=== PATIENT | male | born 1945 | race Caucasian/White ===

== ENCOUNTER 2017-02-28 15:22 | Emergency (ER) | payer SELFPAY ==
[2017-02-28] MEDS ORDERED: MORPHINE SULFATE 10 MG/ML SYR ONE ×2 (15:42→15:50)
[2017-02-28 15:43] LABS: BASOPHIL# 0.1 X 10^3uL (0.0-0.1); BASOPHILS 0.8 % (0.0-2.0); EOSINOPHILS 4.2 % (0.0-6.0); EOSINOPHILS# 0.4 X 10^3uL (0.0-0.4); HEMATOCRIT 37.6 % (42.0-54.0); HEMOGLOBIN 12.5 g/dL (14.0-18.0); LYMPHOCYTES 32.2 % (20.0-40.0); LYMPHOCYTES# 2.7 X 10^3uL (0.8-3.8); MEAN CELL VOLUME 83.2 fL (80.0-100.0); MEAN CORPUS. HGB CONCENTRATION 33.2 g/dL (32.0-36.0); MEAN CORPUSCULAR HEMOGLOBIN 27.6 pg (29.0-35.0); MEAN PLATELET VOLUME 7.6 fL (7.4-10.4); MONOCYTES 6.3 % (2.0-10.0); MONOCYTES# 0.5 X 10^3uL (0.2-1.0); NEUTROPHILS 56.5 % (54.0-75.0); NEUTROPHILS# 4.7 X 10^3uL (2.6-6.7); PLATELET COUNT 239 X 10^3uL (130-440); RED BLOOD COUNT 4.52 X 10^6uL (4.20-6.10); RED CELL DISTRIBUTION WIDTH 13.8 % (11.5-14.5); WHITE BLOOD COUNT 8.4 X 10^3uL (3.9-10.7)
[2017-02-28] MEDS ORDERED: ONDANSETRON HCL 4 MG/2 ML VIAL ONE ×2 (15:43→16:08)
[2017-02-28] MEDS ORDERED: NITROGLYCERIN 250 ML IV ONE (15:44)
[2017-02-28 15:49] LABS: BLOOD UREA NITROGEN 14 mg/dL (9-20); CALCIUM 8.6 mg/dL (8.4-10.2); CHLORIDE 108 mmol/L (98-107); EST GLOMERULAR FILTRATION RATE > 60 mL/min; GLUCOSE 145 mg/dL (70-100); MAGNESIUM 1.8 mg/dL (1.6-2.3); POTASSIUM 4.7 mmol/L (3.5-5.1); SODIUM 136 mmol/L (137-145)
[2017-02-28 15:54] LABS: INR 0.9; PARTIAL THROMBOPLASTIN TIME 23 sec (24-38)
[2017-02-28] MEDS ORDERED: NITROGLYCERIN 0.4 MG TAB.SUBL SUBLINGUAL ONE (15:54)
[2017-02-28 16:01] LABS: TROPONIN I < 0.012 ng/mL (0.00-0.034)
[2017-02-28] MEDS ORDERED: HEPARIN SOD PORCINE 5,000 UNITS/ML VIAL ONE (16:01)
--- NOTE | 2017-02-28 16:44 | ER PHYSICIAN DOCUMENTATION ---
Physician Documentation [facility] Name:Chuck Frost Age:71 yrs Sex:Male :1945 Arrival Date:02/28/2017 Time:15:22 BedTrauma-C Private MD: Obed Goode Disposition: 02/28 17:00 Critical Care:. Chart complete. tl1 Disposition: 02/28/17 16:44 Transfer ordered to [facility]. Diagnosis is Chest Pain. - Reason for transfer: Higher level of care. - Accepting physician is JULI PRASAD. - Condition is Serious. COBRA Form completed? Transfer - Mode of Transportation Helicopter HPI: 15:28 This 71 yrs old Male presents to ER with complaints of Chest Pain > 30 y/o. tl1 15:28 The patient or guardian reports chest pain that is located primarily in the substernal tl1 area. Onset: suddenly, just prior to arrival, at 13:50. The pain radiates to There has been no movement of pain. Associated signs and symptoms: Pertinent positives: diaphoresis, nausea, shortness of breath, Pertinent negatives: abdominal pain, cough, lower extremity pain, lower extremity swelling, palpitations. The chest pain is described as sharp, stabbing. Duration: The patient or guardian reports a single episode, that is still ongoing, that lasted 40 minute(s). Severity of pain: At its worst the pain was severe a 10 / 10. EMS care prior to arrival includes: nitroglycerin. Historical: - Allergies: No known drug Allergies; - Home Meds: 1. atorvastatin oral 2. Bystolic oral 3. lisinopril Oral - PMHx: Hypertension; Asthma; - PSHx: BACK; ANKLE; - Tetanus: unknown. - Immunization history: Pneumococcal vaccine status is unknown. - Ebola Screening: : Patient denies travel to an Ebola-affected area in the 21 days before illness onset. No symptoms or risks identified at this time. . - Social history: Smoking status: Patient states was never smoker of tobacco. ROS: 15:30 Cardiovascular: Positive for chest pain, Negative for edema, orthopnea, palpitations, tl1 paroxysmal nocturnal dyspnea. 15:30 Respiratory: Positive for 15:30 Abdomen/GI: Negative for abdominal pain, vomiting, diarrhea, hematemesis, black/tarry stool, rectal bleeding. 15:30 MS/extremity: Negative for acute changes. 15:30 Neuro: Negative for headache, numbness, weakness. 15:30 All other systems are negative. Exam: 15:30 Constitutional: The patient appears alert, awake, anxious, diaphoretic, in obvious tl1 distress, obviously ill, in obvious pain, pale, restless, uncomfortable. 15:30 Head/face: Exam is negative for acute changes. 15:30 Eyes: Exam is negative for acute changes. 15:30 Neck: Exam negative for acute changes. 15:30 Chest/axilla: Palpation: tenderness, is not appreciated. 15:30 Cardiovascular: Rate: bradycardic, Rhythm: regular, Heart sounds: normal, Edema: is not appreciated, JVD: is not appreciated. 15:30 Respiratory: mild respiratory distress is noted, Respirations: normal, Breath sounds: are normal. 15:30 Abdomen/GI: Inspection: abdomen appears normal, Bowel sounds: diminished, Palpation: abdomen is soft and non-tender. 15:30 Back: pain, that is severe, vertebral tenderness, is not appreciated, muscle spasm, is not present. 15:30 Musculoskeletal/extremity: Exam is negative for acute changes. 15:30 Skin: Very Pale. 15:30 Neuro: Exam negative for acute changes. Vital Signs: 15:24 BP 129 / 85 (auto/); st 15:26 Pulse 70 MON; Temp 98.6; Pulse Ox 98% ; Pain 9/10; lc 15:30 BP 148 / 72 (auto/); st 15:36 Pulse 55 MON; Resp 13; Pulse Ox 97% ; st 15:40 BP 125 / 72 (auto/); st 15:41 Pulse 54 MON; Resp 19; Pulse Ox 99% ; Pain 9/10; lc 15:43 BP 139 / 71 (auto/); st 15:46 Pulse 59 MON; Resp 19; st 15:50 BP 115 / 64 (auto/); st 15:51 Pulse 57 MON; Resp 11; st 15:54 BP 105 / 60 (auto/); lc 16:01 BP 148 / 76 (auto/); lc 16:01 Pulse 52 MON; Resp 7; Pulse Ox 97% ; lc 16:18 Pain 8/10; lc MDM: 15:05 Patient took aspirin. Data reviewed: vital signs, nurses notes, and as a result, I will tl1 *Transfer Patient. Data interpreted: circle saw operator: Pulse oximetry:. Test interpretation: by ED physician or midlevel provider: ECG. Counseling: I had a detailed discussion with the patient and/or guardian regarding: the historical points, exam findings, and any diagnostic results supporting the discharge/admit diagnosis, the need to transfer to another facility. ECG:. 15:33 Patient medically screened. tl1 16:36 EKG attached [facility] [place] 02/28 15:49 Order name: CBC AUTO DIF, MDIF/RMOR IF IND; Complete Time: 06:16 EDMS 07 06:15 Interpretation: WHITE BLOOD COUNT 8.4; HEMATOCRIT 37.6; PLATELET COUNT 239. [facility] 02/28 15:55 Order name: BASIC METABOLIC PANEL; Complete Time: 06:16 EDMS / 06:15 Interpretation: Normal Except: GLUCOSE 145. [facility] 02/28 15:55 Order name: MAGNESIUM; Complete Time: 06:16 EDMS 07 06:15 Interpretation: Normal. [facility] 02/28 15:55 Order name: PROTIME/INR; Complete Time: 06:16 EDMS /02 06:15 Interpretation: Normal: PROTIME 15.6; INR 0.9. [facility] 02/28 15:55 Order name: PARTIAL THROMBOPLASTIN TIME; Complete Time: 06:16 EDMS 07/02 06:15 Interpretation: Normal: PARTIAL THROMBOPLASTIN TIME 23. [facility] 02/28 16:01 Order name: TROPONIN I; Complete Time: 06:16 EDMS 07/02 06:15 Interpretation: Normal: TROPONIN I < 0.012. [facility] 02/28 15:40 Order name: EKG - 12 Lead; Complete Time: 15:40 st 0702 06:16 Interpretation: Abnormal: RBBB and LAFB, with TW flattening in II, F. No acute ischemic tl1 changes. EC:05 Rate is 62 beats/min. Rhythm is regular. IA interval is normal. QRS interval is tl1 prolonged. QT interval is normal. No Q waves. T waves are Flattened in leads III, aVF. No ST changes noted. 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 Interpreted by me. Reviewed by me. Dispensed Medications: 14:35 Drug: Nitroglycerin 0.4 mg; Route: Sublingual; 16:31 Follow up: Response: No change in condition lc 15:30 Drug: Zofran 4 mg; Route: IVP; Infused Over: 2 mins; Site: left antecubital; lc 16:31 Follow up: Response: Nausea is decreased lc 15:40 Drug: morphine 2 mg; Route: IVP; Site: left antecubital; lc 16:31 Follow up: Response: Pain is decreased lc 15:45 Drug: Nitroglycerin 5 mcg/min; Route: IV; Rate: calculated rate; Site: right lc antecubital; 16:00 Follow up: IV Status: Infusing continued upon transfer; IV Intake: 10ml lc 15:48 Drug: heparin 6000 units; Route: IVP; Site: left antecubital; lc 16:31 Follow up: Response: No adverse reaction lc 15:55 Drug: Zofran 4 mg; Route: IVP; Infused Over: 2 mins; Site: left antecubital; 16:32 Follow up: Response: Nausea is decreased Critical care time excluding procedures: 15:05 Critical care time: Bedside Care: 50 minutes, Consultation: 10 minutes. Total time: 60 tl1 minutes Signatures: Gemma Caceres RN RN st Coleman, Linda, RN RN lc Campbell, Sandy, RN RN sc1 Leigh, Tom, MD MD tl1
--- NOTE | 2017-02-28 16:44 | ER NURSING DOCUMENTATION ---
Nurse's Notes [facility] Name:Chuck Frost Age:71 yrs Sex:Male :1945 Arrival Date:02/28/2017 Time:15:22 BedTrauma-C Private MD: Diagnosis:Chest Pain Presentation: 02/28 15:26 Acuity: TALHA 2 15:50 Presenting complaint: EMS states: SUDDEN ONSET OF CHEST PAIN THAT RADIATES TO BACK. lc ALSO C/O SWEATING, NAUSEA, SOB. BP'S EQUAL TO ARMS. Transition of care: patient was not received from another setting of care. Asprin Given by EMS 325 mg po. 15:50 Method Of Arrival: EMS: 410 lc 16:13 AIR CAT ACTIVATION no other NON STEMI. Triage Assessment: 16:06 General: Appears distressed, ill, Behavior is agitated, anxious. lc 16:14 Pain: Complains of pain in chest Pain radiates to back Pain At worst was 10 out of 10 lc on a pain scale. Quality of pain is described as dull, heavy, Pain began 30 min ago. Neuro: Level of Consciousness is awake, alert, Oriented to person, place, time, event. Cardiovascular: Capillary refill < 3 seconds Rhythm is sinus rhythm Chest pain is described as severe. Respiratory: Airway is patent Respiratory effort is even, unlabored. Derm: Skin is pale. Historical: - Allergies: No known drug Allergies; - Home Meds: 1. atorvastatin oral 2. Bystolic oral 3. lisinopril Oral - PMHx: Hypertension; Asthma; - PSHx: BACK; ANKLE; - Tetanus: unknown. - Immunization history: Pneumococcal vaccine status is unknown. - Ebola Screening: : Patient denies travel to an Ebola-affected area in the 21 days before illness onset. No symptoms or risks identified at this time. . - Social history: Smoking status: Patient states was never smoker of tobacco. Screenin:15 Infectious Disease Risk None. Abuse screen: Denies threats or abuse. Denies injuries lc from another. Nutritional screening: No deficits noted. Assessment: 15:30 Derm: Skin is clammy, Skin is pale, Skin temperature is warm. 16:00 Reassessment: Patient states symptoms have improved. MEDS GIVEN, UNABLE TO DO PORT CXR, lc 2ND LINE STARTED. TRANSFER ARRANGED, FLIGHTS HERE. PADS ON CHEST. CALLED AND MESSAGE LEFT. . 16:15 See Triage Assessment done by same RN. Pain: Pain radiates to back Pain began 30 min lc ago. Cardiovascular: Rhythm is sinus rhythm. Vital Signs: 15:24 BP 129 / 85 (auto/); st 15:26 Pulse 70 MON; Temp 98.6; Pulse Ox 98% ; Pain 9/10; lc 15:30 BP 148 / 72 (auto/); st 15:36 Pulse 55 MON; Resp 13; Pulse Ox 97% ; st 15:40 BP 125 / 72 (auto/); st 15:41 Pulse 54 MON; Resp 19; Pulse Ox 99% ; Pain 9/10; lc 15:43 BP 139 / 71 (auto/); st 15:46 Pulse 59 MON; Resp 19; st 15:50 BP 115 / 64 (auto/); st 15:51 Pulse 57 MON; Resp 11; st 15:54 BP 105 / 60 (auto/); lc 16:01 BP 148 / 76 (auto/); lc 16:01 Pulse 52 MON; Resp 7; Pulse Ox 97% ; lc 16:18 Pain 8/10; lc Vitals: 16:15 The patient's bilateral blood pressures are equal. ED Course: 15:22 EKG done per protocol. Performed by ED Staff. Shown to ED physician. st 15:23 Patient arrived in ED. arc 15:26 Teresa Bergeron, BRENT is Primary Nurse. 15:26 Triage completed. 15:30 Labs drawn. (by ED staff). Sent per order to lab. 15:30 Valuables sent with patient Placed in gown. Bed in low position. Side rails up X2. vehicle monitor technician on. Pulse ox on. NIBP on. 15:33 Obed Kong MD is Attending Physician. tl1 15:50 Inserted peripheral IV: 18 gauge in left forearm Maintain field IV. Dressing intact. Good blood return noted. Site clean & dry. Gauge & site: 18G TO R AC. Oxygen Oxygen administration via nasal cannula @ 3L/min. 15:58 EKG done. (by ED staff). 16:36 EKG attached sc1 Administered Medications: 14:35 Drug: Nitroglycerin 0.4 mg; Route: Sublingual; 16:31 Follow up: Response: No change in condition 15:30 Drug: Zofran 4 mg; Route: IVP; Infused Over: 2 mins; Site: left antecubital; lc 16:31 Follow up: Response: Nausea is decreased lc 15:40 Drug: morphine 2 mg; Route: IVP; Site: left antecubital; lc 16:31 Follow up: Response: Pain is decreased 15:45 Drug: Nitroglycerin 5 mcg/min; Route: IV; Rate: calculated rate; Site: right lc antecubital; 16:00 Follow up: IV Status: Infusing continued upon transfer; IV Intake: 10ml lc 15:48 Drug: heparin 6000 units; Route: IVP; Site: left antecubital; lc 16:31 Follow up: Response: No adverse reaction 15:55 Drug: Zofran 4 mg; Route: IVP; Infused Over: 2 mins; Site: left antecubital; lc 16:32 Follow up: Response: Nausea is decreased Intake: 16:00 IV: 10ml; Total: 10ml. Outcome: 16:20 [facility] Time: February 28, 2017 at 16:00 Patient's face sheet was faxed to accepting facility. Face Sheet included patient's name, address, age, gender, contact information and insurance information. Patient will be transported by: [facility]. Nurse and Physician Charting and Notes were sent to Accepting Facility. All tests and/or procedures with results, if applicable, were sent to accepting facility. 16:20 critical 16:20 Instructed on need for transfer 16:20 Critical Care visit due to [place]. 16:30 Transferred: Report called to: COLLINS KENNEDY AT [facility] 16:44 ER care complete, transfer ordered by . 16:44 Patient left the ED. Signatures: Gemma Caceres RN Teresa Mckinney RN RN lc Campbell, Sandy, RN RN sc1 Obed Kong MD MD tl1 Tianna Godoy, Reg Reg arc
== END 2017-02-28 16:44 | disposition short-term general hospital (02) ==
LOC: ER 15:22
DX: R07.2 Precordial pain (principal); R61 Generalized hyperhidrosis; R06.02 Shortness of breath; R11.0 Nausea; I44.4 Left anterior fascicular block; I45.10 Unspecified right bundle-branch block; M54.9 Dorsalgia, unspecified; I10 Essential (primary) hypertension; Z79.899 Other long term (current) drug therapy; Z99.89 Dependence on other enabling machines and devices; Z74.3 Need for continuous supervision
CPT/HCPCS: 80048; 83735; 84484; 85025; 85610; 85730; 93005; 96365; 96374; 96375; 99285; A0425; A0427; A0429; A0433; J1644; J2270; J2405